=== PATIENT | female | born 1940 | race Caucasian/White ===

== ENCOUNTER 2023-12-08 14:31 | Inpatient (IN) | payer BC, MEDICAID ==
[~2023-12-08] VITALS: Ht 152.4 cm; Wt 67.1 kg
[2023-12-08] MEDS ORDERED: MORPHINE SULFATE 2 MG/1 ML DISP.SYRIN IV ONE (14:45)
[2023-12-08] MEDS ORDERED: FUROSEMIDE 20 MG/2 ML VIAL IVP ONE (14:45)
[2023-12-08] MEDS ORDERED: ONDANSETRON 4 MG/2 ML VIAL IV ONE (14:45)
[2023-12-08] MEDS ORDERED: NITROGLYCERIN OINT 1 GM PACKET TP ONE ×2 (14:45→15:14)
[2023-12-08 14:54] LABS: BASOPHILS % (AUTO) 0.2 % (0.0-2.0); HEMATOCRIT 42.4 % (31.2-41.9); HEMOGLOBIN 14.2 g/dL (10.9-14.3); LYMPHOCYTES # (AUTO) 0.4 K/uL (0.8-4.8); LYMPHOCYTES % (AUTO) 3.6 % (20.5-51.5); MEAN CORPUSCULAR HEMOGLOBIN 32.7 uug (24.7-32.8); MEAN CORPUSCULAR HGB CONC 34 g/dL (32.3-35.6); MEAN CORPUSCULAR VOLUME 97.6 fL (75.5-95.3); MONOCYTES # (AUTO) 0.7 K/uL (0.1-1.30); MONOCYTES % (AUTO) 5.7 % (0.0-11.0); NEUTROPHILS # (AUTO) 10.9 K/uL (1.8-8.9); NEUTROPHILS % (AUTO) 90.5 % (38.5-71.5); PLATELET COUNT (AUTO) 160 K/uL (179-408); RED BLOOD CELL COUNT(AUTO) 4.35 MIL/uL (3.63-4.92); RED CELL DISTRIBUTION WIDTH 15.7 % (12.3-17.7)
[2023-12-08 15:05] LABS: DIFFERENTIAL COMMENT 1
[2023-12-08 15:11] LABS: CALCIUM 8.6 mg/dL (8.5-10.1); CARBON DIOXIDE 21 mmol/L (21-32); CHLORIDE 102 mmol/L (98-107); CREATININE 1.4 mg/dL (0.6-1.3); GLUCOSE 165 mg/dL (74-106); POTASSIUM 4.5 mmol/L (3.5-5.1); SODIUM SERUM 135 mmol/L (136-145); UREA NITROGEN, BLOOD 37 mg/dL (7-18)
[2023-12-08] MEDS ORDERED: MORPHINE SULFATE 4 MG/1 ML DISP.SYRIN ONE (15:14)
[2023-12-08] MEDS ORDERED: ONDANSETRON 4 MG/2 ML VIAL ONE (15:14)
[2023-12-08] MEDS ORDERED: FUROSEMIDE 40 MG/4 ML VIAL ONE (15:14)
[2023-12-08] MEDS ORDERED: MORPHINE SULFATE 2 MG/1 ML DISP.SYRIN ONE (15:15)
[2023-12-08] MEDS ORDERED: VALS80TA2 PO (15:31)
[2023-12-08] MEDS ORDERED: ACET325C7 PO (15:31)
[2023-12-08] MEDS ORDERED: METO-358 PO (15:31)
[2023-12-08] MEDS ORDERED: APIX5TAB4 PO (15:31)
[2023-12-08] MEDS ORDERED: LEVO50TA8 PO (15:31)
[2023-12-08 15:44] LABS: LACTIC ACID 2.1 mmol/L (0.4-2.0)
[2023-12-08 15:45] LABS: NT-PRO BNP 11620 pg/mL (0-125)
[2023-12-08 16:51] LABS: *BILIRUBIN,URIN NEGATIVE (NEGATIVE); *CLARITY,URINE CLOUDY (CLEAR); *COLOR,URINE YELLOW (YELLOW); *KETONES,URINE NEGATIVE (NEGATIVE); *PROTEIN,URINE 2+ (NEGATIVE); *UROBILINOGEN,URINE 0.2 E.U./dl (NORMAL); LEUKOCYTE ESTERASE ,URINE NEGATIVE (NEGATIVE); NITRITE, URINE NEGATIVE (NEGATIVE); PH,URINE 5.5 (5.0-8.0); UGLUCOSE NEGATIVE (NEGATIVE)
[2023-12-08 17:06] LABS: *BLOOD, URINE TRACE (NEGATIVE)
[2023-12-08 17:58] LABS: BACTERIA,URINE MODERATE /HPF (NONE SEEN); SQUAMOUS EPITHELIAL CELL,UR MANY /HPF (NONE SEEN)
[2023-12-08] MEDS ORDERED: REMEDY ESSENTIAL ZINC PASTE 113 GM TP PRN (18:00)
[2023-12-08] MEDS ORDERED: MAGNESIUM HYDROXIDE 30 ML LIQUID UDC PO PRN (18:00)
[2023-12-08] MEDS ORDERED: ACETAMINOPHEN 325 MG TABLET PO PRN (18:00)
[2023-12-08] MEDS ORDERED: HYDROCODONE/APAP 5-325MG TABLET PO PRN (18:00)
[2023-12-08] MEDS ORDERED: ENOXAPARIN SODIUM 30 MG/0.3 ML DISP.SYRIN SQ SCH (18:00)
[2023-12-08] MEDS ORDERED: ONDANSETRON 4 MG/2 ML VIAL IV PRN (18:00)
[2023-12-08 18:07] LABS: BILIRUBIN,DIRECT 0.3 mg/dL (0.0-0.2)
[2023-12-08] MEDS ORDERED: ASPIRIN 81 MG TAB.CHEW PO ONE (19:00)
[2023-12-08] MEDS ORDERED: ASPIRIN 81 MG TAB.CHEW ONE (19:53)
[2023-12-08 21:47] VITALS: BP 92/50; TEMP 97.6; O2SAT 92
[2023-12-08] MEDS: APIXABAN 5 MG TABLET PO SCH (22:13)
[2023-12-09] VITALS (8 sets, daily range): BP systolic 88–127; BP diastolic 45–72; TEMP 97–99.2; O2SAT 90–97
[2023-12-09 06:04] LABS: BASOPHILS % (AUTO) 0.1 % (0.0-2.0); HEMATOCRIT 39.3 % (31.2-41.9); HEMOGLOBIN 13.3 g/dL (10.9-14.3); LYMPHOCYTES # (AUTO) 0.4 K/uL (0.8-4.8); MEAN CORPUSCULAR HEMOGLOBIN 33.1 uug (24.7-32.8); MEAN CORPUSCULAR HGB CONC 34 g/dL (32.3-35.6); MEAN CORPUSCULAR VOLUME 98.2 fL (75.5-95.3); MONOCYTES # (AUTO) 0.3 K/uL (0.1-1.30); MONOCYTES % (AUTO) 3.2 % (0.0-11.0); NEUTROPHILS # (AUTO) 8.9 K/uL (1.8-8.9); NEUTROPHILS % (AUTO) 92.7 % (38.5-71.5); PLATELET COUNT (AUTO) 148 K/uL (179-408); RED BLOOD CELL COUNT(AUTO) 4.01 MIL/uL (3.63-4.92); RED CELL DISTRIBUTION WIDTH 15.6 % (12.3-17.7); WHITE BLOOD COUNT (AUTO) 9.6 K/uL (3.8-11.8)
[2023-12-09] MEDS: LEVOTHYROXINE SODIUM 50 MCG TABLET PO SCH ×2 (06:14→21:29)
[2023-12-09 06:36] LABS: THYROID STIMULATING HORMONE 2.424 mIU/mL (0.358-3.740)
[2023-12-09 06:53] LABS: CALCIUM 8.4 mg/dL (8.5-10.1); CARBON DIOXIDE 21 mmol/L (21-32); CHLORIDE 103 mmol/L (98-107); CHOLESTEROL 149 mg/dL (<200); CREATININE 1.6 mg/dL (0.6-1.3); DIFFERENTIAL COMMENT 1; GLUCOSE 130 mg/dL (74-106); HDL CHOLESTEROL 48 mg/dL (40-60); MAGNESIUM 2.2 mg/dL (1.8-2.4); PHOSPHOROUS 4.2 mg/dL (2.5-4.9); POTASSIUM 4.4 mmol/L (3.5-5.1); SODIUM SERUM 137 mmol/L (136-145); TRIGLYCERIDES 85 MG/DL (30-150); UREA NITROGEN, BLOOD 52 mg/dL (7-18)
[2023-12-09] MEDS: VALSARTAN 80 MG TABLET PO SCH (09:00)
[2023-12-09] MEDS ORDERED: METOPROLOL SUCCINATE XL 50 MG TAB.SR.24H PO SCH (09:00)
[2023-12-09] MEDS: FUROSEMIDE 40 MG/4 ML VIAL IV SCH ×2 (09:00→09:04)
[2023-12-09] MEDS: PANTOPRAZOLE SODIUM 40 MG VIAL IV SCH (09:04)
[2023-12-09] MEDS: APIXABAN 5 MG TABLET PO SCH ×2 (09:19→21:28)
[2023-12-09] MEDS: DIGOXIN 500 MCG/2 ML AMP IV SCH ×2 (15:33→21:26)
[2023-12-09] MEDS: ESCITALOPRAM OXALATE 10 MG TABLET PO SCH (17:21)
[2023-12-10 00:20] VITALS: BP 137/55; TEMP 99.6; O2SAT 91
[2023-12-10] MEDS: DIGOXIN 500 MCG/2 ML AMP IV SCH (03:21)
[2023-12-10 04:05] VITALS: BP 149/82; TEMP 99; O2SAT 91
[2023-12-10 06:39] LABS: CALCIUM 8.6 mg/dL (8.5-10.1); CREATININE 1.2 mg/dL (0.6-1.3); POTASSIUM 4.6 mmol/L (3.5-5.1)
[2023-12-10] MEDS ORDERED: METOPROLOL TARTRATE 50 MG TABLET PO SCH (09:00)
[2023-12-10] MEDS: PANTOPRAZOLE SODIUM 40 MG VIAL IV SCH (09:36)
[2023-12-10] MEDS: FUROSEMIDE 40 MG/4 ML VIAL IV SCH (09:36)
[2023-12-10] MEDS: METOPROLOL TARTRATE 50 MG TABLET PO SCH ×2 (09:42→21:56)
[2023-12-10] MEDS: VALSARTAN 80 MG TABLET PO SCH (09:43)
[2023-12-10] MEDS: APIXABAN 5 MG TABLET PO SCH ×2 (09:43→21:57)
[2023-12-10 12:00] VITALS: BP 156/69; TEMP 97.6; O2SAT 96
[2023-12-10 16:00] VITALS: BP 126/60; TEMP 97.6; O2SAT 97
[2023-12-10] MEDS: ESCITALOPRAM OXALATE 10 MG TABLET PO SCH (17:28)
[2023-12-10 17:47] LABS: AMMONIA < 10 umol/L (11-32)
[2023-12-10 20:48] VITALS: BP 107/60; TEMP 98.3; O2SAT 93
[2023-12-11] VITALS (38 sets, daily range): BP systolic 70–122; BP diastolic 38–95; TEMP 98.3–100.4; O2SAT 78–95
[2023-12-11] MEDS: LEVOTHYROXINE SODIUM 50 MCG TABLET PO SCH (06:12)
[2023-12-11] MEDS: PANTOPRAZOLE SODIUM 40 MG TABLET.DR PO SCH (06:12)
[2023-12-11 07:21] LABS: CALCIUM 8.8 mg/dL (8.5-10.1); CARBON DIOXIDE 22 mmol/L (21-32); CHLORIDE 101 mmol/L (98-107); CREATININE 1.5 mg/dL (0.6-1.3); GLUCOSE 93 mg/dL (74-106); POTASSIUM 4.5 mmol/L (3.5-5.1); SODIUM SERUM 135 mmol/L (136-145); UREA NITROGEN, BLOOD 57 mg/dL (7-18)
[2023-12-11] MEDS: FUROSEMIDE 40 MG/4 ML VIAL IV SCH (08:46)
[2023-12-11] MEDS: APIXABAN 5 MG TABLET PO SCH ×2 (08:47→21:00)
[2023-12-11] MEDS: METOPROLOL TARTRATE 50 MG TABLET PO SCH (08:48)
[2023-12-11] MEDS: VALSARTAN 80 MG TABLET PO SCH (08:48)
[2023-12-11] MEDS ORDERED: CEFEPIME HCL 1 G in IV DEXTROSE 5% 50 ML IV SCH (09:00)
[2023-12-11] MEDS ORDERED: DOXYCYCLINE HYCLATE IV 100 MG in IV DEXTROSE 5% 100 ML IV SCH (09:30)
[2023-12-11] MEDS: CEFEPIME HCL 1 G in IV DEXTROSE 5% 50 ML IV SCH (10:27)
[2023-12-11] MEDS: DOXYCYCLINE HYCLATE IV 100 MG in IV DEXTROSE 5% 100 ML IV SCH ×2 (11:17→21:22)
[2023-12-11 11:29] LABS: *BILIRUBIN,URIN NEGATIVE (NEGATIVE); *BLOOD, URINE 3+ (NEGATIVE); *CLARITY,URINE SLIGHTLY CLOUDY (CLEAR); *COLOR,URINE YELLOW (YELLOW); *KETONES,URINE NEGATIVE (NEGATIVE); *PROTEIN,URINE 1+ (NEGATIVE); *UROBILINOGEN,URINE 0.2 E.U./dl (NORMAL); LEUKOCYTE ESTERASE ,URINE 1+ (NEGATIVE); NITRITE, URINE NEGATIVE (NEGATIVE); UGLUCOSE NEGATIVE (NEGATIVE)
[2023-12-11 12:23] LABS: *CREATININE,URINE 30.1 mg/dL (30-125); *URINE TOTAL PROTEIN RANDOM 57.5 mg/dL (<150/24HR)
[2023-12-11 12:43] LABS: BACTERIA,URINE MANY /HPF (NONE SEEN); RBC,URINE 20-50 /HPF (0-3)
[2023-12-11 12:44] LABS: SQUAMOUS EPITHELIAL CELL,UR MODERATE /HPF (NONE SEEN)
[2023-12-11] MEDS: IPRATROPIUM BROMIDE 0.5 MG/2.5 ML NEBU NEB SCH ×3 (13:30→19:29)
[2023-12-11] MEDS ORDERED: NOREPINEPHRINE BITARTRATE 8 MG in IV NORMAL SALINE 242 ML IV PRN (15:15)
[2023-12-11] MEDS ORDERED: NOREPINEPHRINE BITARTRATE 32 MG in IV NORMAL SALINE 218 ML IV PRN (16:00)
[2023-12-11 16:12] LABS: ABG BASE EXCESS -6.2 mmol/L (-2.0-2.0); ABG HCO3 15.6 mmol/L (22.0-26.0); ABG PCO2 23.4 mmHg (35.0-48.0); ABG PH 7.443 (7.340-7.440); ABG PO2 50.8 mmHg (75.0-100.0); ABG SITE RIGHT RADIAL; ABG TOTAL HEMOGLOBIN 15.2 G/dL (12.0-16.0); AaDO2 88.3 mmHg; COHb 0.4 % (0.0-3.9); MetHb 0.1 % (0.0-1.5); O2Hb 85.2 % (94.0-97.0)
[2023-12-11] MEDS: ALBUTEROL SULFATE 2.5 MG/ 0.5 ML NEBU NEB SCH ×3 (16:19→19:29)
[2023-12-11] MEDS: PHENYLEPHRINE IV 100 MG in IV NORMAL SALINE 240 ML IV PRN (16:58)
[2023-12-11] MEDS: ESCITALOPRAM OXALATE 10 MG TABLET PO SCH (17:37)
[2023-12-11] MEDS ORDERED: VANCOMYCIN IV 1,000 MG in IV DEXTROSE 5% 250 ML IV SCH (18:00)
[2023-12-11] MEDS ORDERED: METOPROLOL TARTRATE 50 MG TABLET PO SCH (21:00)
[2023-12-12] VITALS (54 sets, daily range): BP systolic 80–133; BP diastolic 47–86; TEMP 97.4–98.4; O2SAT 94–99
[2023-12-12 05:21] LABS: BASOPHILS % (AUTO) 0.1 % (0.0-2.0); HEMATOCRIT 41.4 % (31.2-41.9); HEMOGLOBIN 13.8 g/dL (10.9-14.3); LYMPHOCYTES # (AUTO) 0.4 K/uL (0.8-4.8); LYMPHOCYTES % (AUTO) 1.5 % (20.5-51.5); MEAN CORPUSCULAR HEMOGLOBIN 32.6 uug (24.7-32.8); MEAN CORPUSCULAR HGB CONC 33 g/dL (32.3-35.6); MONOCYTES # (AUTO) 0.3 K/uL (0.1-1.30); MONOCYTES % (AUTO) 1.4 % (0.0-11.0); NEUTROPHILS # (AUTO) 22.7 K/uL (1.8-8.9); PLATELET COUNT (AUTO) 230 K/uL (179-408); RED BLOOD CELL COUNT(AUTO) 4.23 MIL/uL (3.63-4.92); RED CELL DISTRIBUTION WIDTH 15.6 % (12.3-17.7); WHITE BLOOD COUNT (AUTO) 23.4 K/uL (3.8-11.8)
[2023-12-12 05:26] LABS: DIFFERENTIAL COMMENT 1
[2023-12-12 05:28] LABS: CALCIUM 8.6 mg/dL (8.5-10.1); CARBON DIOXIDE 20 mmol/L (21-32); CHLORIDE 102 mmol/L (98-107); GLUCOSE 87 mg/dL (74-106); POTASSIUM 4.4 mmol/L (3.5-5.1); SODIUM SERUM 138 mmol/L (136-145); UREA NITROGEN, BLOOD 73 mg/dL (7-18)
[2023-12-12] MEDS: PANTOPRAZOLE SODIUM 40 MG TABLET.DR PO SCH (05:57)
[2023-12-12] MEDS: LEVOTHYROXINE SODIUM 50 MCG TABLET PO SCH (05:58)
[2023-12-12] MEDS: ALBUTEROL SULFATE 2.5 MG/ 0.5 ML NEBU NEB SCH ×4 (07:35→19:21)
[2023-12-12] MEDS: IPRATROPIUM BROMIDE 0.5 MG/2.5 ML NEBU NEB SCH ×4 (07:35→19:21)
[2023-12-12] MEDS ORDERED: FUROSEMIDE 40 MG/4 ML VIAL IV SCH (09:00)
[2023-12-12] MEDS ORDERED: VALSARTAN 80 MG TABLET PO SCH (09:00)
[2023-12-12] MEDS: APIXABAN 5 MG TABLET PO SCH (09:00)
[2023-12-12] MEDS: PANTOPRAZOLE SODIUM 40 MG VIAL IV SCH (09:01)
[2023-12-12] MEDS: HEPARIN SODIUM,PORCINE 5,000 UNITS/ML VIAL SQ SCH ×2 (09:03→21:38)
[2023-12-12] MEDS: CEFEPIME HCL 1 G in IV DEXTROSE 5% 50 ML IV SCH (09:04)
[2023-12-12] MEDS: DOXYCYCLINE HYCLATE IV 100 MG in IV DEXTROSE 5% 100 ML IV SCH ×2 (10:57→21:47)
[2023-12-12] MEDS ORDERED: IV D5/ 0.9% NACL 1,000 ML IV PRN (11:45)
[2023-12-12 14:30] LABS: *BILIRUBIN,URIN NEGATIVE (NEGATIVE); *BLOOD, URINE 2+ (NEGATIVE); *CLARITY,URINE CLEAR (CLEAR); *COLOR,URINE YELLOW (YELLOW); *KETONES,URINE TRACE (NEGATIVE); *PROTEIN,URINE 2+ (NEGATIVE); *UROBILINOGEN,URINE 0.2 E.U./dl (NORMAL); LEUKOCYTE ESTERASE ,URINE TRACE (NEGATIVE); NITRITE, URINE NEGATIVE (NEGATIVE); PH,URINE 5.5 (5.0-8.0); UGLUCOSE NEGATIVE (NEGATIVE)
[2023-12-12 14:40] LABS: *CREATININE,URINE 104.4 mg/dL (30-125); *URINE TOTAL PROTEIN RANDOM 248.7 mg/dL (<150/24HR)
[2023-12-12 15:01] LABS: RBC,URINE 20-50 /HPF (0-3)
[2023-12-12 15:02] LABS: BACTERIA,URINE MANY /HPF (NONE SEEN); CALCIUM OXALATE CRYSTALS,UR FEW /HPF (NONE SEEN); SQUAMOUS EPITHELIAL CELL,UR FEW /HPF (NONE SEEN)
[2023-12-12 15:03] LABS: URIC ACID CRYSTALS,URINE MANY /HPF (NONE SEEN)
[2023-12-12] MEDS: ESCITALOPRAM OXALATE 10 MG TABLET PO SCH (17:23)
[2023-12-12 17:24] LABS: CALCIUM 8.5 mg/dL (8.5-10.1); CARBON DIOXIDE 22 mmol/L (21-32); CHLORIDE 104 mmol/L (98-107); CREATININE 2.8 mg/dL (0.6-1.3); GLUCOSE 105 mg/dL (74-106); POTASSIUM 4.3 mmol/L (3.5-5.1); SODIUM SERUM 138 mmol/L (136-145)
[2023-12-12] MEDS: PHENYLEPHRINE IV 100 MG in IV NORMAL SALINE 240 ML IV PRN (17:25)
[2023-12-12 17:26] LABS: UREA NITROGEN, BLOOD 83 mg/dL (7-18)
[2023-12-12] MEDS ORDERED: MEROPENEM 500 MG VIAL IV ONE (21:56)
[2023-12-12] MEDS: MEROPENEM 0.5 G in IV NORMAL SALINE 50 ML IV SCH (22:51)
[2023-12-13] VITALS (35 sets, daily range): BP systolic 47–130; BP diastolic 38–83; TEMP 98–99.2; O2SAT 68–97
[2023-12-13] MEDS ORDERED: MEROPENEM 500 MG VIAL IV ONE (01:01)
[2023-12-13 05:23] LABS: BASOPHILS % (AUTO) 0.2 % (0.0-2.0); EOSINOPHILS # (AUTO) 0.1 K/uL (0.0-0.7); EOSINOPHILS % (AUTO) 0.3 % (0.0-7.0); HEMATOCRIT 39.3 % (31.2-41.9); HEMOGLOBIN 13.2 g/dL (10.9-14.3); LYMPHOCYTES # (AUTO) 0.2 K/uL (0.8-4.8); LYMPHOCYTES % (AUTO) 1.1 % (20.5-51.5); MEAN CORPUSCULAR HEMOGLOBIN 32.7 uug (24.7-32.8); MEAN CORPUSCULAR HGB CONC 34 g/dL (32.3-35.6); MEAN CORPUSCULAR VOLUME 97.5 fL (75.5-95.3); MONOCYTES # (AUTO) 0.2 K/uL (0.1-1.30); MONOCYTES % (AUTO) 0.8 % (0.0-11.0); NEUTROPHILS # (AUTO) 17.9 K/uL (1.8-8.9); NEUTROPHILS % (AUTO) 97.6 % (38.5-71.5); PLATELET COUNT (AUTO) 226 K/uL (179-408); RED BLOOD CELL COUNT(AUTO) 4.03 MIL/uL (3.63-4.92); RED CELL DISTRIBUTION WIDTH 15.9 % (12.3-17.7); WHITE BLOOD COUNT (AUTO) 18.3 K/uL (3.8-11.8)
[2023-12-13 05:28] LABS: DIFFERENTIAL COMMENT 1
[2023-12-13] MEDS: PHENYLEPHRINE IV 100 MG in IV NORMAL SALINE 240 ML IV PRN (05:33)
[2023-12-13] MEDS: MEROPENEM 0.5 G in IV NORMAL SALINE 50 ML IV SCH (05:33)
[2023-12-13 05:45] LABS: ALANINE AMINOTRANSFERASE 24 U/L (14-59); ALBUMIN 1.8 g/dL (3.4-5.0); ALKALINE PHOSPHATASE 75 U/L (50-136); ASPARTATE AMINOTRANSFERASE 49 U/L (15-37); BILIRUBIN,TOTAL 1.1 mg/dL (0.2-1.0); CALCIUM 8.6 mg/dL (8.5-10.1); CARBON DIOXIDE 22 mmol/L (21-32); CHLORIDE 108 mmol/L (98-107); CREATINE KINASE, TOTAL 336 U/L (26-192); CREATININE 2.5 mg/dL (0.6-1.3); GLUCOSE 134 mg/dL (74-106); MAGNESIUM 2.4 mg/dL (1.8-2.4); PHOSPHOROUS 4.3 mg/dL (2.5-4.9); SODIUM SERUM 143 mmol/L (136-145); VANCOMYCIN,RANDOM 12.6 ug/mL (20.0-30.0)
[2023-12-13 05:48] LABS: UREA NITROGEN, BLOOD 81 mg/dL (7-18)
[2023-12-13] MEDS: PANTOPRAZOLE SODIUM 40 MG TABLET.DR PO SCH (06:02)
[2023-12-13] MEDS: LEVOTHYROXINE SODIUM 50 MCG TABLET PO SCH (06:03)
[2023-12-13] MEDS ORDERED: NOREPINEPHRINE BITARTRATE 8 MG in IV NORMAL SALINE 242 ML IV PRN (06:15)
[2023-12-13 06:28] LABS: ABG BASE EXCESS -5.9 mmol/L (-2.0-2.0); ABG HCO3 16.6 mmol/L (22.0-26.0); ABG PH 7.424 (7.340-7.440); ABG PO2 67.1 mmHg (75.0-100.0); ABG SITE LEFT RADIAL; ABG TOTAL HEMOGLOBIN 14.7 G/dL (12.0-16.0); AaDO2 94.1 mmHg; COHb 0.2 % (0.0-3.9); MetHb 0.2 % (0.0-1.5); O2Hb 92.3 % (94.0-97.0)
[2023-12-13] MEDS: IPRATROPIUM BROMIDE 0.5 MG/2.5 ML NEBU NEB SCH (07:19)
[2023-12-13] MEDS: ALBUTEROL SULFATE 2.5 MG/ 0.5 ML NEBU NEB SCH (07:19)
[2023-12-13] MEDS ORDERED: VANCOMYCIN IV 750 MG in IV DEXTROSE 5% 250 ML IV ONE (08:00)
[2023-12-13] MEDS: PANTOPRAZOLE SODIUM 40 MG VIAL IV SCH (08:32)
[2023-12-13] MEDS: HEPARIN SODIUM,PORCINE 5,000 UNITS/ML VIAL SQ SCH (08:42)
[2023-12-13] MEDS ORDERED: ACETAMINOPHEN 650 MG SUPP.RECT RC PRN (09:30)
[2023-12-13] MEDS: DOXYCYCLINE HYCLATE IV 100 MG in IV DEXTROSE 5% 100 ML IV SCH (10:21)
[2023-12-13] MEDS ORDERED: MORPHINE SULFATE PF IV DRIP 100 MG in IV DEXTROSE 5% 96 ML IV PRN (11:00)
[2023-12-13] MEDS ORDERED: MEROPENEM 0.5 G in IV NORMAL SALINE 50 ML IV SCH ×2 (14:00→17:00)
[2023-12-17 23:10] LABS: METHYLMALONIC ACID 361 nmol/L (0-378)
== END 2023-12-13 19:00 | DRG 871 ==
LOC: ER 14:31 → TELE3 20:38 → CCU 12-11 15:51
PROVIDERS: ADMIT Nurse Practitioner Acute Care; ATTEND Nurse Practitioner Acute Care
PROC: 05HY33Z Insertion of Infusion Device into Upper Vein, Percutaneous Approach (ICD-10-PCS; principal; 2023-12-11)
PROC: 5A09457 Assistance with Respiratory Ventilation, 24-96 Consecutive Hours, Continuous Positive Airway Pressure (ICD-10-PCS; 2023-12-11)
DX: A41.51 Sepsis due to Escherichia coli [E. coli] (principal); E43 Unspecified severe protein-calorie malnutrition; G92.8 Other toxic encephalopathy; I21.A1 Myocardial infarction type 2; J96.01 Acute respiratory failure with hypoxia; I50.33 Acute on chronic diastolic (congestive) heart failure; J69.0 Pneumonitis due to inhalation of food and vomit; N17.0 Acute kidney failure with tubular necrosis; R65.21 Severe sepsis with septic shock; I13.0 Hypertensive heart and chronic kidney disease with heart failure and stage 1 through stage 4 chronic kidney disease, or unspecified chronic kidney disease; N39.0 Urinary tract infection, site not specified; I48.20 Chronic atrial fibrillation, unspecified; D68.59 Other primary thrombophilia; Z66 Do not resuscitate; Z51.5 Encounter for palliative care; E66.9 Obesity, unspecified; Z68.28 Body mass index [BMI] 28.0-28.9, adult; I34.1 Nonrheumatic mitral (valve) prolapse; I34.0 Nonrheumatic mitral (valve) insufficiency; G30.9 Alzheimer's disease, unspecified; F02.C0 Dementia in other diseases classified elsewhere, severe, without behavioral disturbance, psychotic disturbance, mood disturbance, and anxiety; Z74.09 Other reduced mobility; I25.10 Atherosclerotic heart disease of native coronary artery without angina pectoris; E03.9 Hypothyroidism, unspecified; N18.9 Chronic kidney disease, unspecified; Z88.0 Allergy status to penicillin; Z79.890 Hormone replacement therapy; Z79.01 Long term (current) use of anticoagulants
CPT/HCPCS: 36415; 36600; 71045; 76770; 82747; 83605; 83735; 83921; 84100; 84300; 84443; 84484; 85014; 85025; 85730; 87040; 93005; 93307; 94640; 94660; 94760; A4606; A4663; C9113; G0378; J0692; J1160; J1644; J1940; J2185; J2270; J2274; J2405; J3370; J3490; J3590; J7042; J7050